=== PATIENT | female | born 1960 | race Caucasian/White ===

== ENCOUNTER 2022-03-13 05:15 | Inpatient (IN) | payer OTHER ==
[~2022-03-13] VITALS: Ht 157.5 cm; Wt 76.7 kg
[2022-03-13 05:26] LABS: HEMOGLOBIN 15.8 gm/dl (12.3-15.3); RED BLOOD COUNT 5.11 M/UL (4.00-5.10); WHITE BLOOD COUNT 13.6 K/UL (4.5-11.0)
[2022-03-13 05:50] LABS: BUN/CREATININE RATIO 17 (0-10)
[2022-03-13 15:32] LABS: HEMOGLOBIN 13.8 gm/dl (12.3-15.3); RED BLOOD COUNT 4.54 M/UL (4.00-5.10)
[2022-03-13 15:48] LABS: BUN/CREATININE RATIO 15 (0-10)
[2022-03-14 02:18] LABS: HEMOGLOBIN 13.6 gm/dl (12.3-15.3); RED BLOOD COUNT 4.6 M/UL (4.00-5.10); WHITE BLOOD COUNT 11.1 K/UL (4.5-11.0)
[2022-03-14 02:45] LABS: BUN/CREATININE RATIO 24 (0-10)
[2022-03-15] MEDS ORDERED: BRILINTA 90 MG90 MG PO (12:07)
[2022-03-15] MEDS ORDERED: LOPRESSOR 25 MG25 MG PO (12:07)
[2022-03-15] MEDS ORDERED: ASPIRIN EC81 MG PO (12:07)
[2022-03-15] MEDS ORDERED: ATORVASTATIN CA80 MG PO (12:07)
== END 2022-03-15 15:00 | disposition home or self-care (01) | DRG 247 ==
LOC: ER1 05:15 → CCU 05:18 → CDU 05:18 → CCU 07:20 → PROG CARE 03-14 09:16
PROVIDERS: Family Medicine; ADMIT Internal Medicine Cardiovascular Disease
PROC: 4A023N7 Measurement of Cardiac Sampling and Pressure, Left Heart, Percutaneous Approach (ICD-10-PCS; principal; 2022-03-13)
PROC: 027034Z Dilation of Coronary Artery, One Artery with Drug-eluting Intraluminal Device, Percutaneous Approach (ICD-10-PCS; 2022-03-13)
PROC: B2111ZZ Fluoroscopy of Multiple Coronary Arteries using Low Osmolar Contrast (ICD-10-PCS; 2022-03-13)
PROC: B240ZZ3 Ultrasonography of Single Coronary Artery, Intravascular (ICD-10-PCS; 2022-03-13)
PROC: B24BZZZ Ultrasonography of Heart with Aorta (ICD-10-PCS; 2022-03-13)
DX: I21.19 ST elevation (STEMI) myocardial infarction involving other coronary artery of inferior wall (principal); I50.22 Chronic systolic (congestive) heart failure; I47.2 Ventricular tachycardia; I11.0 Hypertensive heart disease with heart failure; Z20.822 Contact with and (suspected) exposure to COVID-19; I25.10 Atherosclerotic heart disease of native coronary artery without angina pectoris; J44.9 Chronic obstructive pulmonary disease, unspecified; E78.5 Hyperlipidemia, unspecified; I25.5 Ischemic cardiomyopathy; F32.A Depression, unspecified; Z95.5 Presence of coronary angioplasty implant and graft; Z79.899 Other long term (current) drug therapy; Z79.82 Long term (current) use of aspirin; Z85.3 Personal history of malignant neoplasm of breast; Z91.013 Allergy to seafood
CPT/HCPCS: ECHO; 36415; 71045; 80048; 80053; 82550; 82553; 83735; 84484; 85025; 85027; 85347; 85610; 85730; 92978; 93005; 93306; 99152; 99153; 99285; C1725; C1753; C1769; C1874; C1894; J0461; J1644; J1650; J2250; J2270; J2370; J3010; J3475; J7030; J7040; Q9957; Q9965; U0002